=== PATIENT | male | born 1950 | race Two or more races ===

== ENCOUNTER 2020-08-21 07:52 | Outpatient (CLI) | payer OTHER | END 2020-08-21 07:58 | disposition home or self-care (01) | LOC: RX STUDY 07:52 | PROVIDERS: ATTEND Internal Medicine Gastroenterology | DX: R19.4 Change in bowel habit (principal); D50.0 Iron deficiency anemia secondary to blood loss (chronic); K29.70 Gastritis, unspecified, without bleeding; R19.5 Other fecal abnormalities ==